=== PATIENT | female | born 2000 | race Asian ===

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

== ENCOUNTER 2023-09-24 03:13 | Inpatient (IN) | payer MEDICAID ==
[~2023-09-24] VITALS: Ht 157.5 cm; Wt 76.8 kg
[2023-09-24 04:09] LABS: Basophils # (auto) 0.1 10 ^3/uL (0-0.2); Basophils % (auto) 0.4 % (0.0-2.0); Eosinophils # (auto) 0.3 10 ^3/uL (0-0.8); Eosinophils % (auto) 2.1 % (0.0-7.0); Hematocrit 41.6 % (36.0-46.0); Lymphocytes # (auto) 4.6 10 ^3/uL (0.4-5.4); Lymphocytes % (auto) 30.3 % (10.0-50.0); Mean Corpuscular Hemoglobin 27.7 pg (28.0-32.0); Mean Corpuscular Hgb Conc. 33.6 g/dL (32.0-36.0); Mean Corpuscular Volume 82.4 fL (80.0-100.0); Monocytes # (auto) 0.8 10 ^3/uL (0-1.3); Monocytes % (auto) 5.2 % (0.0-12.0); Neutrophils # (auto) 9.4 10 ^3/uL (1.6-8.6); Nucleated Red Blood Cells % 0.1 %; Red Blood Cells 5.05 10^6/uL (4.0-5.20); Red Cell Distribution Width 13.6 % (11.8-14.3); White Blood Cell 15.2 10^3/uL (4.4-10.8)
[2023-09-24 04:16] LABS: Urine Bacteria FEW /hpf (None Seen); Urine Blood 2+ /uL (Negative); Urine Clarity HAZY (Clear); Urine Color Yellow (Yellow); Urine Mucus FEW (None Seen); Urine Protein, UAD TRACE (Negative); Urine Specific Gravity 1.025 (1.001-1.035); Urine Urobilinogen Normal (Negative); Urine WBC 15 /hpf (0 - 5); Urine pH 5.5 (5.0-8.0)
[2023-09-24 04:27] LABS: Alanine Aminotransferase 13 U/L (7-40); Albumin 4.3 g/dL (3.2-4.8); Alkaline Phosphatase 44 U/L (46-116); Anion Gap 9 (5-15); Aspartate Aminotransferase 14 U/L (13-40); Blood Urea Nitrogen 9 mg/dL (9-23); Calcium 9.3 mg/dL (8.7-10.4); Carbon Dioxide 23 mmol/L (20-30); Chloride 106 mmol/L (98-107); Glucose 127 mg/dL (74-106); Potassium 3.2 mmol/L (3.5-5.1); Sodium 138 mmol/L (136-145)
[2023-09-24 04:28] LABS: Bilirubin, Total 0.3 mg/dL (0.2-1.0); Total Protein 7.3 g/dL (5.7-8.2)
[2023-09-24] MEDS: cefTRIAXone 1GM/50ML D5W 50 ML IV ONE (05:43)
[2023-09-24] MEDS: POTASSIUM CHL 20 Meq TABLET PO ONE (05:43)
[2023-09-24] MEDS: SODIUM CHLORIDE 0.9% 1,000 ML IV ONE (05:43)
[2023-09-24] MEDS: KETOROLAC TROMETH 30 MG/ML 1ML VIAL IV ONE (05:43)
[2023-09-24 06:42] VITALS: PULSE 89; RESP 24; O2SAT 100
[2023-09-24] MEDS: MORPHINE SULFATE INJ 2 MG/ml SYRG IV ONE (06:58)
[2023-09-24] MEDS: ONDANSETRON HCL 4 MG/2 ML VIAL IV ONE (06:58)
[2023-09-24 07:40] VITALS: PULSE 88; RESP 14; O2SAT 100
[2023-09-24] MEDS ORDERED: MORPHINE SULFATE INJ 2 MG/ml SYRG IV PRN (09:15)
[2023-09-24] MEDS ORDERED: DOCUSATE SOD 100 MG CAP PO PRN (09:15)
[2023-09-24] MEDS ORDERED: ONDANSETRON HCL 4 MG/2 ML VIAL IV PRN (09:15)
[2023-09-24] MEDS: SODIUM CHLORIDE 0.9% 1,000 ML IV SCH (09:58)
[2023-09-24] MEDS: KETOROLAC TROMETH 30 MG/ML 1ML VIAL IV SCH (12:00)
[2023-09-24 16:11] VITALS: RESP 16; O2SAT 100
[2023-09-24] MEDS: TAMSULOSIN HYDROCHLORIDE 0.4 MG CAP PO SCH (18:00)
[2023-09-24 19:30] VITALS: O2SAT 98
[2023-09-24 20:38] VITALS: PULSE 81; RESP 19; TEMP 98.2; O2SAT 98
[2023-09-24 21:00] VITALS: BP 137/91; PULSE 84; RESP 16; TEMP 97.4; O2SAT 99
[2023-09-25 01:00] VITALS: BP 134/87; PULSE 78; RESP 16; TEMP 97.8; O2SAT 98
[2023-09-25 05:00] VITALS: BP 125/82; PULSE 84; RESP 16; TEMP 97.6; O2SAT 95
[2023-09-25 06:09] LABS: Basophils # (auto) 0 10 ^3/uL (0-0.2); Basophils % (auto) 0.5 % (0.0-2.0); Eosinophils # (auto) 0.2 10 ^3/uL (0-0.8); Hematocrit 38.7 % (36.0-46.0); Hemoglobin 12.9 g/dL (12.2-16.2); Lymphocytes # (auto) 2.4 10 ^3/uL (0.4-5.4); Lymphocytes % (auto) 28.6 % (10.0-50.0); Mean Corpuscular Hemoglobin 28.1 pg (28.0-32.0); Mean Corpuscular Hgb Conc. 33.2 g/dL (32.0-36.0); Mean Corpuscular Volume 84.7 fL (80.0-100.0); Monocytes # (auto) 0.4 10 ^3/uL (0-1.3); Monocytes % (auto) 5.1 % (0.0-12.0); Neutrophils # (auto) 5.3 10 ^3/uL (1.6-8.6); Neutrophils % (auto) 63.8 % (37.0-80.0); Nucleated Red Blood Cells % 0.2 %; Red Blood Cells 4.57 10^6/uL (4.0-5.20); Red Cell Distribution Width 13.4 % (11.8-14.3); White Blood Cell 8.3 10^3/uL (4.4-10.8)
[2023-09-25 06:10] LABS: Albumin 3.9 g/dL (3.2-4.8); Alkaline Phosphatase 43 U/L (46-116); Anion Gap 8 (5-15); Aspartate Aminotransferase 17 U/L (13-40); BUN/Creatinine Ratio 11.5 (10.0-20.0); Blood Urea Nitrogen 11 mg/dL (9-23); Calcium 8.7 mg/dL (8.7-10.4); Carbon Dioxide 21 mmol/L (20-30); Chloride 108 mmol/L (98-107); Glucose 98 mg/dL (74-106); Potassium 4.1 mmol/L (3.5-5.1); Sodium 137 mmol/L (136-145)
[2023-09-25 06:11] LABS: Bilirubin, Total 0.3 mg/dL (0.2-1.0); Total Protein 6.6 g/dL (5.7-8.2)
[2023-09-25 06:28] LABS: Alanine Aminotransferase 9 U/L (7-40)
[2023-09-25 08:00] VITALS: RESP 17
[2023-09-25 08:10] VITALS: BP 140/82; PULSE 66; RESP 18; TEMP 98.4; O2SAT 97
[2023-09-25] MEDS: cefTRIAXone 1GM/50ML D5W 50 ML IV SCH (10:01)
[2023-09-25 12:19] VITALS: BP 137/91; PULSE 70; RESP 18; TEMP 98; O2SAT 99
[2023-09-25] MEDS ORDERED: MANNITOL FTV 25% 12.5 GM/50 ML 50 ML IV ONE (13:15)
== END 2023-09-25 15:27 | disposition left against medical advice (07) | DRG 720 ==
LOC: ER 03:13 → OVERFLOW 09:15 → WEST WING 18:23
PROVIDERS: ADMIT Nurse Practitioner Family; ATTEND Nurse Practitioner Family
DX: A41.9 Sepsis, unspecified organism (principal); N13.6 Pyonephrosis; E87.5 Hyperkalemia; N20.2 Calculus of kidney with calculus of ureter; I10 Essential (primary) hypertension; Z53.29 Procedure and treatment not carried out because of patient's decision for other reasons; Z80.3 Family history of malignant neoplasm of breast; Z83.3 Family history of diabetes mellitus; Z82.49 Family history of ischemic heart disease and other diseases of the circulatory system
CPT/HCPCS: 36415; 74176; 80053; 81001; 84702; 85025; 87086; 96365; 96375; G0378; J1885; J2405